=== PATIENT | female | born 1970 | race Caucasian/White ===

== ENCOUNTER 2017-08-27 10:44 | Emergency (ER) | payer SELFPAY ==
[~2017-08-27] VITALS: Ht 180.3 cm; Wt 84.9 kg
[~2017-08-27 10:44] MED LIST: PREN0.01 PO
[2017-08-27 10:49] VITALS: BP 163/59; PULSE 67; RESP 16; TEMP 98.3; O2SAT 95
--- NOTE | 2017-08-27 11:09 | PD ---
HPI Chief Complaint: General Weakness Time Seen by Provider: 10:56 Travel History International Travel<30 days: No Contact w/Intl Traveler<30days: No Traveled to known affect area: No History of Present Illness HPI This is a 47-year-old female who presents to the emergency department having had onset of blurry vision at work associated with some lightheadedness and dizziness. She put her head down and then she started to see flashes in both eyes, constant, moderate severity, present with her eyes open and with her eyes closed. She also felt nauseous. She has a history of migraines but has not had a migraine in years and she did not have a headache at the time of the symptoms. She denies any chest pain. She has some abdominal discomfort on the left side which is normal for her and she has a history of irritable bowel syndrome. She did recently have a primary care physical where they discovered blood in her stool and she has a colonoscopy scheduled. PFSH Past Medical History Anxiety: Yes Depression: Yes Cardiovascular Problems: Yes (MVP) Gastrointestinal Disorders: Yes (IBS) Respiratory: Yes (PE) Tetanus Vaccination: Unknown Influenza Vaccination: No ?: Not Ovarian Cysts: Yes Past Surgical History Hysterectomy: Yes Tonsillectomy: Yes Social History Alcohol Use: Yes (THREE DRINKS EVERY OTHER DAY) Tobacco Use: Yes (1 PPD) Substance Use: No Allergies-Medications (Allergen,Severity, Reaction): Coded Allergies: sulfamethoxazole (Verified Allergy, Severe, Nausea/Vomiting, 08/27/17) trimethoprim (Verified Allergy, Severe, Nausea/Vomiting, 08/27/17) Reported Meds & Prescriptions Reported Meds & Active Scripts Active Review of Systems Except as stated in HPI: all other systems reviewed are Neg Physical Exam Narrative GENERAL:Well appearing, no acute distress SKIN: Focused skin assessment warm and dry. HEAD: Atraumatic. Normocephalic. EYES: Pupils equal and round. No injection or drainage. ENT: Moist mucous membranes NECK: Trachea midline. CARDIOVASCULAR: Regular rate and rhythm. No murmur appreciated. RESPIRATORY: Clear to auscultation. Breath sounds equal bilaterally. GASTROINTESTINAL: Abdomen soft, non-tender, nondistended. MUSCULOSKELETAL: No obvious deformities. NEUROLOGICAL: Awake and alert. No obvious cranial nerve deficits. No dysarthria or aphasia. No upper or lower extremity drift. No upper extremity ataxia. Visual villa intact. PSYCHIATRIC: Appropriate mood and affect; insight and judgment normal. Data Data Last Documented VS Vital Signs Date Time Temp Pulse Resp B/P (MAP) Pulse Ox O2 Delivery O2 Flow Rate FiO2 08/27/17 11:32 61 16 119/48 (71) 97 Room Air 08/27/17 10:49 98.3 Orders Orders Complete Blood Count With Diff (08/27/17 11:05) Comprehensive Metabolic Panel (08/27/17 11:05) ^ Insert Iv (08/27/17 11:05) Ketorolac Inj (Toradol Inj) (08/27/17 11:15) Sodium Chlor 0.9% 1000 Ml Inj (Ns 1000 M (08/27/17 11:15) Troponin I (08/27/17 11:05) Electrocardiogram (08/27/17 ) Labs Laboratory Tests Test 08/27/17 11:24 White Blood Count 8.9 TH/MM3 Red Blood Count 4.46 MIL/MM3 Hemoglobin 14.8 GM/DL Hematocrit 43.3 % Mean Corpuscular Volume 97.1 FL Mean Corpuscular Hemoglobin 33.2 PG Mean Corpuscular Hemoglobin Concent 34.2 % Red Cell Distribution Width 12.9 % Platelet Count 265 TH/MM3 Mean Platelet Volume 8.3 FL Neutrophils (%) (Auto) 72.7 % Lymphocytes (%) (Auto) 17.6 % Monocytes (%) (Auto) 7.1 % Eosinophils (%) (Auto) 2.0 % Basophils (%) (Auto) 0.6 % Neutrophils # (Auto) 6.4 TH/MM3 Lymphocytes # (Auto) 1.6 TH/MM3 Monocytes # (Auto) 0.6 TH/MM3 Eosinophils # (Auto) 0.2 TH/MM3 Basophils # (Auto) 0.1 TH/MM3 CBC Comment DIFF FINAL Differential Comment Blood Urea Nitrogen 7 MG/DL Creatinine 0.58 MG/DL Random Glucose 94 MG/DL Total Protein 7.2 GM/DL Albumin 4.0 GM/DL Calcium Level 8.9 MG/DL Alkaline Phosphatase 56 U/L Aspartate Amino Transf (AST/SGOT) 12 U/L Alanine Aminotransferase (ALT/SGPT) 23 U/L Total Bilirubin 0.4 MG/DL Sodium Level 140 MEQ/L Potassium Level 3.9 MEQ/L Chloride Level 106 MEQ/L Carbon Dioxide Level 25.9 MEQ/L Anion Gap 8 MEQ/L Estimat Glomerular Filtration Rate 112 ML/MIN Troponin I LESS THAN 0.02 NG/ML MDM Medical Decision Making Medical Screen Exam Complete: Yes Emergency Medical Condition: Yes Interpretation(s) Afebrile, no tachycardia, hypertension resolved No leukocytosis Electrolytes are reassuring Troponin is normal EKG: Sinus bradycardia with a heart rate of [address] changes Differential Diagnosis Migraine headache, arrhythmia, anemia, electrolyte abnormality, dehydration Narrative Course This is a 47-year-old female who presents to the emergency department with some blurry vision and flashes in her eyes, feeling lightheaded and dizzy. She has a normal neurologic exam. Labs are reassuring including an EKG and troponin. I suspect the patient's symptoms are a migraine aura. I do not think she requires any neuroimaging given. She feels improved after IV fluids and Toradol. She will be discharged home and was instructed to continue taking Aleve and to follow-up with her primary care physician in a week. 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 Sometimes in the emergency department we did not identify the cause of headaches. If you continued to have headaches it is very important that you followup with your primary care physician as you may need further testing with an MRI. Med/Other Pt SpecificInfo: No Change to Meds Disposition: 01 DISCHARGE HOME Condition: Stable Lavonne Romo MD Aug 27, 2017 11:09
[2017-08-27] MEDS ORDERED: KETOROLAC TROMETHAMINE 30 MG/ML (IVP) VIAL IV PUSH ONE (11:15)
[2017-08-27] MEDS ORDERED: SODIUM CHLOR 0.9% 1000 ML INJ 1,000 ML IV ONE (11:15)
[2017-08-27 11:31] LABS: AUTOMATED NEUTROPHIL # 6.4 TH/MM3 (1.8-7.7); BASOPHIL # 0.1 TH/MM3 (0-0.2); BASOPHIL % 0.6 % (0.0-2.0); EOSINOPHIL # 0.2 TH/MM3 (0-0.4); HEMATOCRIT 43.3 % (35.0-46.0); HEMOGLOBIN 14.8 GM/DL (11.6-15.3); LYMPH % 17.6 % (9.0-44.0); LYMPHOCYTE # 1.6 TH/MM3 (1.0-4.8); MEAN CELL VOLUME 97.1 FL (80.0-100.0); MEAN CORPUSCULAR HEMOGLOBIN 33.2 PG (27.0-34.0); MEAN CORPUSCULAR HGB CONC 34.2 % (32.0-36.0); MEAN PLATELET VOLUME 8.3 FL (7.0-11.0); MONO % 7.1 % (0.0-8.0); MONOCYTE # 0.6 TH/MM3 (0-0.9); NEUT % 72.7 % (16.0-70.0); PLATELET COUNT 265 TH/MM3 (150-450); RED BLOOD COUNT 4.46 MIL/MM3 (4.00-5.30); RED CELL DISTRIBUTION WIDTH 12.9 % (11.6-17.2); WHITE BLOOD COUNT 8.9 TH/MM3 (4.0-11.0)
[2017-08-27 11:32] VITALS: BP 119/48; PULSE 61; RESP 16; O2SAT 97
[2017-08-27 11:47] LABS: CHLORIDE 106 MEQ/L (98-107); SODIUM (NA) 140 MEQ/L (136-145)
[2017-08-27 11:51] LABS: BICARBONATE 25.9 MEQ/L (21.0-32.0); BLOOD UREA NITROGEN 7 MG/DL (7-18); CALCIUM 8.9 MG/DL (8.5-10.1); GLUCOSE,RANDOM 94 MG/DL (74-106)
[2017-08-27 11:54] LABS: ALT (GPT) 23 U/L (10-53); AST (GOT) 12 U/L (15-37); CREATININE 0.58 MG/DL (0.50-1.00); GLOMERULAR FILTRATION RATE 112 ML/MIN (>89)
[2017-08-27 11:56] LABS: TOTAL BILIRUBIN ADULT 0.4 MG/DL (0.2-1.0); TOTAL PROTEIN 7.2 GM/DL (6.4-8.2)
[2017-08-27 11:57] LABS: ALKALINE PHOSPHATASE 56 U/L (45-117)
[2017-08-27 11:59] LABS: TROPONIN I LESS THAN 0.02 NG/ML (0.02-0.05)
[2017-08-27 12:16] VITALS: BP 119/51; PULSE 68; RESP 16; O2SAT 99
--- NOTE | 2017-08-28 21:48 | EKG ---
Date Performed: 08/27/2017 Time Performed: 11:14:35 PTAGE: 47 years EKG: SINUS BRADYCARDIA BORDERLINE ECG NO PREVIOUS TRACING DOCTOR: Fabiola Reynoso Interpretating Date/Time 08/28/2017 21:46:46
== END 2017-08-27 12:40 | disposition home or self-care (01) ==
LOC: PHED 10:44
DX: G43.109 Migraine with aura, not intractable, without status migrainosus (principal); R00.1 Bradycardia, unspecified; F17.200 Nicotine dependence, unspecified, uncomplicated; R11.0 Nausea
CPT/HCPCS: 80053; 84484; 85025; 93005; 96361; 96374; 99284; J1885; J7030